=== PATIENT | male | born 1980 | race Asian ===

== ENCOUNTER 2022-04-07 12:23 | Outpatient (CLI) | payer BC, SELFPAY ==
--- NOTE | ~2022-04-07 | XR_ITS ---
EXAMINATION: XR wrist RT min 3V DATE: 04/07/2022 12:54 INDICATION: Right wrist hyperextension injury. TECHNIQUE: 4 views of right wrist were obtained. COMPARISON: None. FINDINGS: Bone alignment is normal. No acute fracture. 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 Joint spaces are normal. IMPRESSION: 1. No acute fracture. Reviewed, dictated and finalized at location A. IMPRESSION: 1. No acute fracture.
== END 2022-04-07 12:24 | disposition home or self-care (01) ==
PROVIDERS: Visit Provider Internal Medicine
DX: M25.531 Pain in right wrist (principal)
CPT/HCPCS: 73110